=== PATIENT | male | born 1995 | race African-American/Black ===

== ENCOUNTER 2019-04-21 18:16 | Emergency (ER) | payer OTHER ==
[~2019-04-21] VITALS: Ht 170.2 cm; Wt 100.2 kg
[~2019-04-21 18:16] MED LIST: DOCU-144 PO; HYDR25SU23 PR
[2019-04-21 18:20] VITALS: Ht 170.2 cm; Wt 100.2 kg
[2019-04-21] MEDS ORDERED: FAMOTIDINE 20 MG INJ IV STA (18:53)
[2019-04-21] MEDS ORDERED: LIDOCAINE/MYLANTA 40 ML BTL PO STA (18:53)
[2019-04-21] MEDS ORDERED: SOD CHLORIDE 0.9% 100 ML IV STA (18:53)
[2019-04-21] MEDS ORDERED: SOD CHLORIDE 0.9% 1,000 ML IV STA (19:33)
--- NOTE | 2019-04-21 20:47 | ERD ---
ER Documentation Chief Complaint Chief Complaint ABODINAL PAIN W/RECTAL BLEEDING SINCE 1500 HPI This is a 24-year-old male with history of GERD presents to the ED complaining of "burning" mid epigastric and lower abdominal pain for the past several days. He states he has a history of GERD and had an endoscopy over a month ago by his GI specialist, he was started on omeprazole for this. He states he has a history of constipation and usually strains when making bowel movements. He states he was making a bowel movement today when he noticed bright red blood on toilet paper. He was concerned about this so he came here for further evaluation. Denies any recent Pepto-Bismol use. Denies hematochezia or melena. No hematemesis, nausea or vomiting. ROS All systems reviewed and are negative except as per history of present illness. Medications Home Meds Active Scripts Docusate Sodium* (Colace*) 100 Mg Capsule, 100 MG PO TID, #30 CAP Prov:KATIGRISSAC ELDRIDGE-C 04/21/19 Hydrocortisone Acetate (Anusol-Hc) 25 Mg Supp.rect, 1 SUPP LA BID PRN for HEMORROID PAIN/ITCHING, #12 SUPP.RECT Prov:ISSAC VÁZQUEZ PA-C 04/21/19 Allergies Allergies: Coded Allergies: No Known Allergy (Unverified , 04/21/19) PMhx/Soc Medical and Surgical Hx: pt denies Surgical Hx History of Surgery: No Anesthesia Reaction: No Hx Neurological Disorder: No Hx Respiratory Disorders: No Hx Cardiac Disorders: No Hx Psychiatric Problems: No Hx Miscellaneous Medical Probl: No Hx Alcohol Use: No Hx Substance Use: No Hx Tobacco Use: No Smoking Status: Never smoker FmHx Family History: No diabetes Physical Exam Vitals Vital Signs Date Temp Pulse Resp B/P (MAP) Pulse Ox O2 O2 Flow FiO2 Time Delivery Rate 04/21/19 99.1 84 18 167/86 97 18:20 (113) Physical Exam Const: No acute distress Head: Atraumatic Eyes: Normal Conjunctiva ENT: Normal External Ears, Nose and Mouth. Neck: Full range of motion. No meningismus. Resp: Clear to auscultation bilaterally Cardio: Regular rate and rhythm, no murmurs Abd: Soft,+ diffuse abdominal tenderness, especially to the mid epigastric and left upper quadrant region. No rebound, no guarding. Negative McBurney's, negative Raman's. non distended. Normal bowel sounds Rectal Exam: Normal tone, No mass, Positive control, no external hemorrhoids, no anal fissures Stool: Brown Guaiac: Negative Skin: No petechiae or rashes Back: No midline or flank tenderness Ext: No cyanosis, or edema Neur: Awake and alert Psych: Normal Mood and Affect Result Diagram: 04/21/19191904/21/191919 Results 24 hrs Laboratory Tests Test 04/21/19 19:20 04/21/19 19:30 White Blood Count 6.2 10^3/ul Red Blood Count 5.61 10^6/ul Hemoglobin 15.7 g/dl Hematocrit 47.7 % Mean Corpuscular Volume 85.0 fl Mean Corpuscular Hemoglobin 28.0 pg Mean Corpuscular Hemoglobin Concent 32.9 g/dl Red Cell Distribution Width 12.0 % Platelet Count 267 10^3/UL Mean Platelet Volume 10.4 fl Immature Granulocytes % 0.200 % Neutrophils % 36.0 % Lymphocytes % 46.8 % Monocytes % 10.7 % Eosinophils % 5.8 % Basophils % 0.5 % Nucleated Red Blood Cells % 0.0 /100WBC Immature Granulocytes # 0.010 10^3/ul Neutrophils # 2.2 10^3/ul Lymphocytes # 2.9 10^3/ul Monocytes # 0.7 10^3/ul Eosinophils # 0.4 10^3/ul Basophils # 0.0 10^3/ul Nucleated Red Blood Cells # 0.0 10^3/ul Sodium Level 141 mmol/L Potassium Level 4.3 mmol/L Chloride Level 102 mmol/L Carbon Dioxide Level 29 mmol/L Anion Gap 10 Blood Urea Nitrogen 14 mg/dl Creatinine 1.24 mg/dl Est Glomerular Filtrat Rate mL/min > 60 mL/min Glucose Level 94 mg/dl Calcium Level 10.4 mg/dl Total Bilirubin 0.4 mg/dl Direct Bilirubin 0.00 mg/dl Indirect Bilirubin 0.4 mg/dl Aspartate Amino Transf (AST/SGOT) 109 IU/L Alanine Aminotransferase (ALT/SGPT) 68 IU/L Alkaline Phosphatase 93 IU/L Total Protein 8.3 g/dl Albumin 4.8 g/dl Globulin 3.50 g/dl Albumin/Globulin Ratio 1.37 Amylase Level 125 U/L Lipase 76 U/L Stool Occult Blood NEGATIVE Current Medications Medications Dose Sig/Dorinda Start Time Status Last (Trade) Ordered Route PRN Stop Time Admin Dose Reason Admin Sodium 100 ml @ Q1H STAT 04/21/19 DC Chloride 100 mls/hr IV 18:53 04/21/19 19:35 Famotidine 20 mg ONCE STAT 04/21/19 DC 04/21/19 (Pepcid Iv) IV 18:53 04/21/19 19:23 18:55 40 ml ONCE STAT 04/21/19 DC 04/21/19 Miscellaneous PO 18:53 04/21/19 19:23 Medication 18:55 (Gi Cocktail (2)) Sodium 1,000 ml @ Q1H STAT 04/21/19 DC 04/21/19 Chloride 1,000 mls/hr IV 19:33 04/21/19 19:38 20:32 Procedures/MDM LABS & DIAGNOSTIC IMAGING: CBC: no e/o of systemic infection or severe anemia CMP: no e/o severe acidosis, alkalosis, renal failure, diabetic ketoacidosis, liver disease Lipase: no e/o pancreatitis Guaiac: negative ED COURSE: The patient was given IV fluids, Pepcid, GI cocktail The medication was well tolerated and the patient had market improvement in symptoms. The patient remained stable throughout ED course. MEDICAL DECISION MAKING: This is a 24-year-old male with history of GERD presents with constipation and bright red blood per rectum. Work-up shows no evidence of infection, dehydration or anemia. He has no evidence of active bleeding at this time. His guaiac negative, suspect his rectal bleeding is related to hemorrhoids secondary to constipation. We will treat with a trial of topical steroids and stool softeners. He has an appointment with GI specialist next week for endoscopy and colonoscopy. He did have exacerbation of his GERD which was treated w/ IV fluids and GI cocktail. There is no evidence of upper or lower GI bleeding at this time. Patient is hemodynamically stable and discharged home with strict return precautions. PRESCRIPTIONS: Preparation H, Colace SPECIALIST FOLLOW UP RECOMMENDED: GI specialist Departure Diagnosis: Primary Impression: GERD (gastroesophageal reflux disease) Esophagitis presence: without esophagitis Qualified Codes: K21.9 - Gastro- esophageal reflux disease without esophagitis Additional Impression: Constipation Constipation type: unspecified constipation type Qualified Codes: K59.00 - Constipation, unspecified Condition: Stable Patient Instructions: Constipation (Adult) Referrals: [facility] YOU HAVE RECEIVED A MEDICAL SCREENING EXAM AND THE RESULTS INDICATE THAT YOU DO NOT HAVE A CONDITION THAT REQUIRES URGENT TREATMENT IN THE EMERGENCY DEPARTMENT. FURTHER EVALUATION AND TREATMENT OF YOUR CONDITION CAN WAIT UNTIL YOU ARE SEEN IN YOUR DOCTORS OFFICE WITHIN THE NEXT 1-2 DAYS. IT IS YOUR RESPONSIBILITY TO MAKE AN APPOINTMENT FOR FOLOW-UP CARE. IF YOU HAVE A PRIMARY DOCTOR --you should call your primary doctor and schedule an appointment IF YOU DO NOT HAVE A PRIMARY DOCTOR YOU CAN CALL OUR PHYSICIAN REFERRAL HOTLINE AT IF YOU CAN NOT AFFORD TO SEE A PHYSICIAN YOU CAN CHOSE FROM THE FOLLOWING [facility] [address] [facility]. [facility] [address] [facility] [facility] [address] [facility] [facility] [address] [facility]. [facility] [address] [facility]. [facility] [address] [facility]. [facility] YOU HAVE RECEIVED A MEDICAL SCREENING EXAM AND THE RESULTS INDICATE THAT YOU DO NOT HAVE A CONDITION THAT REQUIRES URGENT TREATMENT IN THE EMERGENCY DEPARTMENT. FURTHER EVALUATION AND TREATMENT OF YOUR CONDITION CAN WAIT UNTIL YOU ARE SEEN IN YOUR DOCTORS OFFICE WITHIN THE NEXT 1-2 DAYS. IT IS YOUR RESPONSIBILITY TO MAKE AN APPOINTMENT FOR FOLOW-UP CARE. IF YOU HAVE A PRIMARY DOCTOR --you should call your primary doctor and schedule and appointment IF YOU DO NOT HAVE A PRIMARY DOCTOR YOU CAN CALL OUR PHYSICIAN REFERRAL HOTLINE AT . IF YOU CAN NOT AFFORD TO SEE A PHYSICIAN YOU CAN CHOSE FROM THE FOLLOWING [facility]: [facility] [address] [place] [address] [facility] [address] [place] [address] [facility] [address] [place] [address] Additional Instructions: Aloe up with your GI specialist next week as scheduled. He can take copies of your lab report with you. Return here for any worsening pain or symptoms. If you take the medications I am prescribing you as needed to help relieve your symptoms. ISSAC VÁZQUEZ PA-C Apr 21, 2019 20:47
[2019-04-21 20:59] VITALS: BP 127/77; PULSE 71; RESP 18
== END 2019-04-21 21:01 | disposition home or self-care (01) ==
LOC: FTE 18:16
DX: K21.9 Gastro-esophageal reflux disease without esophagitis (principal); K59.00 Constipation, unspecified
CPT/HCPCS: 36415; 80053; 82150; 82270; 83690; 85025; 96361; 96374; J7030; J7040; Z7502; Z7610

== ENCOUNTER 2019-05-30 10:29 | Emergency (ER) | payer OTHER ==
[~2019-05-30] VITALS: Wt 100.0 kg
[2019-05-30 10:33] VITALS: BP 126/60; PULSE 82; RESP 20
[2019-05-30] MEDS ORDERED: LIDOCAINE 1% (MPF) 5 ML VIAL INJ ONE (11:00)
[2019-05-30] MEDS ORDERED: DIPHTH/TET/ACEL PERTUSS (ADULT) 0.5 ML VIAL IM* ONE (12:00)
== END 2019-05-30 11:47 | disposition home or self-care (01) ==
LOC: FTE 10:29
DX: S81.811A Laceration without foreign body, right lower leg, initial encounter (principal); W22.8XXA Striking against or struck by other objects, initial encounter; Y92.9 Unspecified place or not applicable
CPT/HCPCS: 12001; 90715; Z7502; Z7610

== ENCOUNTER 2019-06-06 18:09 | Emergency (ER) | payer OTHER ==
[~2019-06-06] VITALS: Ht 165.1 cm; Wt 102.6 kg
[2019-06-06 18:36] VITALS: BP 162/87; PULSE 86; RESP 18; Ht 165.1 cm; Wt 102.6 kg
== END 2019-06-06 19:22 | disposition home or self-care (01) ==
LOC: E/R 18:09
DX: Z48.01 Encounter for change or removal of surgical wound dressing (principal)
CPT/HCPCS: 99281